=== PATIENT | male | born 1935 | race Caucasian/White ===

== ENCOUNTER 2022-11-18 14:30 | Inpatient (IN) | payer MEDICARE, OTHER ==
[2022-11-18 14:56] LABS: BASOPHILS ABSOLUTE AUTO 0.02 K/uL (0.00-0.20); BASOPHILS PERCENT AUTO 0.1 % (0.0-2.0); EOSINOPHILS ABSOLUTE AUTO 0.01 K/uL (0.00-0.50); EOSINOPHILS PERCENT AUTO 0.1 % (0.0-5.0); HEMATOCRIT 34.5 % (39.0-49.0); LYMPHOCYTES ABSOLUTE AUTO 0.35 K/uL (0.50-3.50); LYMPHOCYTES PERCENT AUTO 2.1 % (10.0-50.0); MEAN CORPUSCULAR HEMOGLOBIN 33.8 pg (28.2-33.3); MEAN CORPUSCULAR HGB CONC 34.8 g/dL (31.7-36.0); MEAN CORPUSCULAR VOLUME 97.2 fL (84.0-98.0); MONOCYTES ABSOLUTE AUTO 0.62 K/uL (0.00-1.00); MONOCYTES PERCENT AUTO 3.7 % (2.0-14.0); NEUTROPHILS ABSOLUTE AUTO 15.55 K/uL (1.40-7.00); PLATELET COUNT,PLT 207 K/uL (150-350); RED BLOOD CELL COUNT 3.55 M/uL (4.33-5.41); RED CELL DISTRIBUTION WIDTH 13.7 % (11.2-14.1); WHITE BLOOD CELL COUNT,WBC 16.6 K/uL (4.0-10.2)
[2022-11-18 15:12] LABS: INR 1.2 (0.9-1.1); PROTHROMBIN TIME 12.1 SEC (9.0-11.1)
[2022-11-18 15:16] LABS: ALANINE AMINOTRANSFERASE,ALT 23 U/L (12-78); ALBUMIN 2.9 g/dL (3.4-5.0); ALKALINE PHOSPHATASE 86 IU/L (46-116); ASPARTATE AMNIOTRANSFERASE,AST 19 U/L (15-37); BILIRUBIN TOTAL 0.9 mg/dL (0.2-1.0); BLOOD UREA NITROGEN,BUN 80 mg/dL (7-18); CALCIUM 9.2 mg/dL (8.5-10.1); CARBON DIOXIDE,CO2 29.1 mmol/L (21.0-32.0); CHLORIDE,CL 87 mmol/L (98-107); GLUCOSE RANDOM 208 mg/dL (70-99); MAGNESIUM 2.4 mg/dL (1.8-2.4); PROTEIN TOTAL,TP 8.2 g/dL (6.4-8.2); SODIUM,NA 129 mmol/L (136-145)
[2022-11-18 15:18] LABS: ANION GAP 15.5 meq/L (7-15); ESTIMATED GFR 17 mL/min (>=60)
[2022-11-18 15:20] LABS: POTASSIUM,K 2.6 mmol/L (3.5-5.1)
[2022-11-18 15:21] LABS: CREATININE 3.38 mg/dL (0.51-1.17)
[2022-11-18 15:22] LABS: CORONAVIRUS COVID-19 NAA NEGATIVE (NEGATIVE); INFLUENZA A NAA NEGATIVE (NEGATIVE); INFLUENZA B NAA NEGATIVE (NEGATIVE); RESPIRATORY SYNCYTIAL VIR NAA NEGATIVE (NEGATIVE)
[2022-11-18] MEDS ORDERED: Potassium Chloride 20 MEQ Tab.ER PO ONE ×4 (15:26→18:49)
[2022-11-18] MEDS ORDERED: Ondansetron 4 MG Tab.DIS PO PRN (17:56)
[2022-11-18] MEDS ORDERED: Acetaminophen 325 MG Tab PO PRN (18:00)
[2022-11-18] MEDS: Furosemide 40 MG Tab PO SCH (19:15)
[2022-11-18] MEDS: Isosorbide Mononitrate 30 MG Tab.ER PO SCH (19:16)
[2022-11-19 07:53] LABS: BLOOD UREA NITROGEN,BUN 79 mg/dL (7-18); CALCIUM 9.2 mg/dL (8.5-10.1); CARBON DIOXIDE,CO2 28.7 mmol/L (21.0-32.0); CHLORIDE,CL 83 mmol/L (98-107); GLUCOSE RANDOM 166 mg/dL (70-99); SODIUM,NA 125 mmol/L (136-145)
[2022-11-19 07:57] LABS: ANION GAP 15.7 meq/L (7-15); CREATININE 3.34 mg/dL (0.51-1.17); ESTIMATED GFR 17 mL/min (>=60); POTASSIUM,K 2.4 mmol/L (3.5-5.1)
[2022-11-19] MEDS ORDERED: Ferrous Sulfate 325 MG Tab PO SCH (08:00)
[2022-11-19] MEDS ORDERED: RANOLAZINE 500 MG PO SCH (08:00)
[2022-11-19] MEDS ORDERED: Levothyroxine 50 MCG Tab PO SCH (08:00)
[2022-11-19] MEDS ORDERED: Aspirin 81 MG Tab.EC PO SCH (08:00)
[2022-11-19] MEDS ORDERED: Amiodarone 200 MG Tab PO SCH (08:00)
[2022-11-19] MEDS ORDERED: Beta-Carotene (Vitamin A) w/Vitamin C & E plus Minerals Tab PO SCH (08:00)
[2022-11-19] MEDS ORDERED: atorvaSTATin 40 MG Tab PO SCH (08:00)
[2022-11-19] MEDS ORDERED: Metoprolol Succinate 25 MG Tab.ER PO SCH (08:00)
[2022-11-19] MEDS ORDERED: Pantoprazole 40 MG Tab.CR PO SCH (08:00)
[2022-11-19 08:03] LABS: APPEARANCE,URINE SLIGHTLY CLOUDY; BILIRUBIN,URINE NEGATIVE (NEGATIVE); COLOR,URINE YELLOW; GLUCOSE,URINE NEGATIVE (NEGATIVE); KETONES,URINE NEGATIVE (NEGATIVE); LEUKOCYTE ESTERASE,URINE NEGATIVE (NEGATIVE); NITRITE,URINE NEGATIVE (NEGATIVE); OCCULT BLOOD,URINE TRACE-LYSED (NEGATIVE); PH,URINE 5.5 (5.0-9.0); PROTEIN,URINE TRACE mg/dL (NEGATIVE); UROBILINOGEN,URINE 0.2 E.U./dL (0.2-1.0)
[2022-11-19] MEDS ORDERED: Potassium Chloride 20 MEQ Tab.ER PO ONE ×2 (08:10→09:30)
[2022-11-19 08:13] LABS: BACTERIA,URINE FEW /HPF (NONE TO FEW); EPITHELIAL CELLS,URINE FEW /LPF; HYALINE CASTS,URINE FEW; MUCUS,URINE FEW /LPF (NEGATIVE); RBC,URINE 0-5 /HPF; WBC,URINE 0-5 /HPF
[2022-11-19] MEDS ORDERED: Potassium Chloride Riders 10 MEQ in Premix Bag 1 BAG IV ONE (08:17)
[2022-11-19] MEDS ORDERED: Sodium Chloride 0.9% 10 ML Syringe FLUSH PRN (09:11)
[2022-11-19] MEDS: Furosemide 40 MG Tab PO SCH ×2 (10:19→17:00)
[2022-11-19] MEDS: Isosorbide Mononitrate 30 MG Tab.ER PO SCH ×2 (10:19→17:00)
[2022-11-19] MEDS: Potassium Chloride Riders 10 MEQ in Premix Bag 1 BAG IV SCH ×5 (11:09→15:27)
== END 2022-11-19 19:02 | DRG 641 ==
LOC: LL.ED 14:30 → LL.MS 17:30
PROVIDERS: ADMIT Physician Assistant; ATTEND Physician Assistant
DX: E87.6 Hypokalemia (principal); N17.9 Acute kidney failure, unspecified; R53.1 Weakness; Z20.822 Contact with and (suspected) exposure to COVID-19; N18.32 Chronic kidney disease, stage 3b; I48.91 Unspecified atrial fibrillation; I50.9 Heart failure, unspecified; Z79.82 Long term (current) use of aspirin; Z88.0 Allergy status to penicillin; Z79.899 Other long term (current) drug therapy; W18.30XA Fall on same level, unspecified, initial encounter
CPT/HCPCS: 0241U; 36415; 71045; 80048; 80053; 81001; 83735; 83880; 84132; 85025; 85610; 93005; 99285; A9270-GY; J3480